=== PATIENT | female | born 1960 | race Asian ===

== ENCOUNTER 2017-05-20 11:35 | Inpatient (IN) | END 2017-05-28 16:40 | disposition home or self-care (01) | DRG 178 ==

== ENCOUNTER 2018-08-15 11:43 | Day surgery (SDC) | payer BC ==
[~2018-08-15] VITALS: Ht 160 cm; Wt 51.9 kg
[~2018-08-15 11:43] MED LIST: DOCU-216 PO; HYDR-3601 PO; LEVO500T48 PO; METO5TAB2 PO
[2018-08-15] MEDS ORDERED: TYLENOL (14:37)
[2018-08-15] MEDS ORDERED: OMEPRAZOLE (14:37)
[2018-08-15 14:42] VITALS: Ht 160 cm; Wt 51.9 kg
[2018-08-15 15:07] VITALS: BP 131/81; PULSE 71; RESP 18
[2018-08-15] MEDS ORDERED: LIDOCAINE 2% (SDV) 5 ML INJ ONE (15:43)
[2018-08-15] MEDS ORDERED: PROPOFOL 40 ML ONE (15:43)
--- NOTE | 2018-08-15 15:43 | PREAC ---
Date/Time of Note Date/Time of Note DATE: 08/15/18 TIME: 15:42 Anesthesia Eval and Record Evaluation Time Pre-Procedure Interview DATE: 08/15/18 TIME: 15:42 Age 58 Sex female NPO: 8 hrs Preoperative diagnosis DYSPHAGIA, ACHALASIA Planned procedure EGD Past Medical History Past Medical History: Includes Pulm: Asthma GI: GERD Surgery & Anesthesia Issues No known issue Meds Anticoagulation: No Beta Gale within 24 hr: No Reason Beta Gale not given: Pt. not on B-Gale Active Scripts Metoclopramide Hcl (Reglan) 5 Mg Tab, 5 MG PO QID PRN for NAUSEA AND/OR VOMITING, #10 TAB Prov:JES MERCADO MD 05/28/17 Docusate Sodium (Dok) 100 Mg Capsule, 100 MG PO Q12H PRN for CONSTIPATION for 10 Days, CAP Prov:JES MERCADO MD 05/28/17 Hydrocodone Bit-Acetaminophen (Hydrocodone Bit-APAP) 5-325MG Tablet, 1 TAB PO Q6H PRN for MODERATE PAIN LEVEL 4-6 for 10 Days, TAB Prov:JES MERCADO MD 05/28/17 Levofloxacin* (Levaquin*) 500 Mg Tablet, 500 MG PO DAILY for 7 Days, TAB Prov:JES MERCADO MD 05/28/17 Reported Medications [Tylenol] No Conflict Check 08/15/18 [Omeprazole] No Conflict Check 08/15/18 Meds reviewed: Yes Allergies Coded Allergies: No Known Allergy (Unverified , 05/20/17) Allergies Reviewed: Yes Labs/Studies Labs Reviewed: Reviewed by anesthesiologist test: N/A Pre-procedure Exam Last vitals Vital Signs Date Temp Pulse Resp B/P (MAP) Pulse Ox O2 O2 Flow FiO2 Time Delivery Rate 08/15/18 97.3 71 18 131/81 99 Room Air 15:07 (98) Airway: Adequate mouth opening, Adequate thyromental dist Mallampati: Mallampati II Teeth: Normal Lung: Normal Heart: Normal ASA Physical Status ASA physical status: 2 Emergency: None Planned Anesthetic General/MAC: MAC Planned Pain Management Parenteral pain med Pre-operative Attestations Prior to commencing anesthesia and surgery, the patient was re-evaluated, there was verification of: *The patient's identity *The results of appropriate recent lab work and preoperative vital signs *The above evaluation not changing prior to induction *Anesthetic plan, risk benefits, alternative and complications discussed with patient/family; questions answered; patient/family understands, accepts and wishes to proceed. Steve Ibrahim M.D. Aug 15, 2018 15:42
[2018-08-15] MEDS ORDERED: FENTAnyl 50 MCG/ML VIAL ONE (15:44)
[2018-08-15 16:25] VITALS: BP 116/70; PULSE 78; RESP 20
--- NOTE | 2018-08-15 16:35 | PAC ---
Date/Time of Note Date/Time of Note DATE: 08/15/18 TIME: 16:35 Post-Anesthesia Notes Post-Anesthesia Note Last documented vital signs Vital Signs Date Temp Pulse Resp B/P (MAP) Pulse Ox O2 O2 Flow FiO2 Time Delivery Rate 08/15/18 97.3 71 18 131/81 99 Room Air 15:07 (98) Activity: WNL Respiratory function: WNL Cardiovascular function: WNL Mental status: Baseline Pain reasonably controlled: Yes Hydration appropriate: Yes Nausea/Vomiting absent: Yes Steve Ibrahim M.D. Aug 15, 2018 16:35
== END 2018-08-15 20:20 | disposition home or self-care (01) ==
LOC: GIL 11:43
PROVIDERS: ATTEND Internal Medicine Gastroenterology
DX: K22.0 Achalasia of cardia (principal)
CPT/HCPCS: 43235; J3010; Z7610